=== PATIENT | female | born 1985 | race Caucasian/White ===

== ENCOUNTER 2021-01-04 01:56 | Emergency (ER) | payer OTHER, SELFPAY ==
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
[2021-01-04 02:00] VITALS: BP 131/70; PULSE 118; RESP 18; TEMP 37.1; O2SAT 98
[2021-01-04 02:58] VITALS: PULSE 110; RESP 18; O2SAT 98
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
--- NOTE | 2021-01-04 03:07 | PC.NURSE ---
Assumed care of pt at this time, report taken from Lu SHERIDAN. Updated pt on POC. Pt requesting nausea medication.
--- NOTE | 2021-01-04 03:12 | PC.NURSE ---
Pt to CT via stretcher at this time. Pt alert and upright on stretcher during transport out of ED.
[2021-01-04] MEDS: TETANUS,DIPHTHERIA,AC PERTUSSIS ADULT (0.5 ML) BOOSTRIX IM (03:30)
[2021-01-04] MEDS: ACETAMINOPHEN 325 MG TABLET 650 MG PO (03:31)
[2021-01-04] MEDS: PROMETHAZINE HCL 25 MG/ML AMPUL IM (03:31)
[2021-01-04 04:41] VITALS: BP 112/63; PULSE 115; RESP 18; O2SAT 98
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
== END 2021-01-04 04:49 | disposition home or self-care (01) ==
PROVIDERS: Emergency Provider Emergency Medicine
DX: S00.03XA Contusion of scalp, initial encounter (principal); S00.11XA Contusion of right eyelid and periocular area, initial encounter; Z23 Encounter for immunization; Y04.2XXA Assault by strike against or bumped into by another person, initial encounter
CPT/HCPCS: 70450; 70486; 90471; 90715; 96372; 99284; A9270; J2550